=== PATIENT | female | born 1985 | race Caucasian/White ===

== ENCOUNTER 2016-12-09 19:00 | Emergency (ER) | payer MEDICAID ==
[~2016-12-09] VITALS: Ht 167.6 cm; Wt 97.1 kg
[2016-12-09 20:45] VITALS: BP 184/103
== END 2016-12-09 20:45 | disposition home or self-care (01) ==
LOC: ED 19:00
DX: T81.4XXA Infection following a procedure, initial encounter (principal); R03.0 Elevated blood-pressure reading, without diagnosis of hypertension